=== PATIENT | male | born 1950 | race Caucasian/White ===

== ENCOUNTER 2017-10-19 17:20 | Emergency (ER) | payer OTHER ==
[2017-10-19] MEDS: ONDANSETRON 4 MG INJ IV (17:55)
[2017-10-19] MEDS: morphine 4 MG/ML VIAL IV (17:56)
[2017-10-19] MEDS: SOD CHLORIDE 0.9% 1,000 ML IV (17:56)
[2017-10-19 18:05] LABS: ADD MAN DIFF? NO
[2017-10-19 18:08] LABS: WHITE BLOOD COUNT 10.9 10^3/ul (4.8-10.8)
[2017-10-19 18:08] LABS: BASOPHILS % 0.4 % (0.0-2.0); EOSINOPHILS # 0.2 10^3/ul (0.0-0.5); HEMATOCRIT 41.6 % (42.0-52.0); HEMOGLOBIN 13.7 g/dl (14.0-18.0); LYMPHOCYTES % 18.8 % (15.0-51.0); MEAN CORPUSCULAR HEMOGLOBIN 28.9 pg (29.0-33.0); MEAN CORPUSCULAR HGB CONC 32.9 g/dl (32.0-37.0); MEAN CORPUSCULAR VOLUME 87.8 fl (82.0-101.0); MEAN PLATELET VOLUME 11.9 fl (7.4-10.4); MONOCYTE # 0.7 10^3/ul (0.3-0.9); MONOCYTES % 6.4 % (0.0-11.0); NEUTROPHIL # 7.8 10^3/ul (1.6-7.5); NEUTROPHILS % 71.8 % (39.0-77.0); PLATELET COUNT 232 10^3/UL (140-415); RED BLOOD COUNT 4.74 10^6/ul (4.70-6.10); RED CELL DISTRIBUTION WIDTH 13.6 % (11.5-14.5)
[2017-10-19 18:22] LABS: ALANINE AMINOTRANSFERASE 30 IU/L (13-69); ALBUMIN 3.6 g/dl (3.3-4.9); ALBUMIN/GLOBULIN RATIO 1.05; ALKALINE PHOSPHATASE 126 IU/L (42-121); AMYLASE 70 U/L (11-123); ANION GAP 15 (8-16); ASPARTATE AMINO TRANSFERASE 19 IU/L (15-46); BILIRUBIN,INDIRECT 0.2 mg/dl (0-1.1); BILIRUBIN,TOTAL 0.2 mg/dl (0.2-1.3); BLOOD UREA NITROGEN 15 mg/dl (7-20); CALCIUM 8.5 mg/dl (8.4-10.2); CARBON DIOXIDE 25 mmol/L (21-31); CHLORIDE 103 mmol/L (97-110); CREATININE 0.73 mg/dl (0.61-1.24); GLUCOSE 372 mg/dl (70-220); LIPASE 36 U/L (23-300); SODIUM 139 mmol/L (135-144)
[2017-10-19 18:27] LABS: INR 0.92; PROTIME 12.4 Sec (11.9-14.9)
[2017-10-19 18:28] LABS: PARTIAL THROMBOPLASTIN TIME 32.2 Sec (25.0-35.0)
[2017-10-19 18:35] LABS: TROPONIN-I < 0.012 ng/ml (0.00-0.12)
== END 2017-10-19 21:31 | disposition home or self-care (01) ==
LOC: E/R 17:20
DX: M79.3 Panniculitis, unspecified (principal); R40.2142 Coma scale, eyes open, spontaneous, at arrival to emergency department; R40.2252 Coma scale, best verbal response, oriented, at arrival to emergency department; R40.2362 Coma scale, best motor response, obeys commands, at arrival to emergency department; Z79.4 Long term (current) use of insulin; Z79.82 Long term (current) use of aspirin
CPT/HCPCS: 74176; 80053; 82150; 83690; 84484; 85025; 85610; 85730; 93005; 96374; 96375; 99285-25

== ENCOUNTER 2017-11-14 06:33 | Emergency (ER) | payer SELFPAY, OTHER ==
[2017-11-14] MEDS: IBUPROFEN 600 MG TAB PO (07:43)
[2017-11-14] MEDS ORDERED: DEXTROSE 50% 50 ML SYRINGE (07:59)
== END 2017-11-14 09:26 | disposition home or self-care (01) ==
LOC: E/R 06:33
DX: L84 Corns and callosities (principal); I10 Essential (primary) hypertension; E11.9 Type 2 diabetes mellitus without complications; Z79.4 Long term (current) use of insulin; Z79.82 Long term (current) use of aspirin
CPT/HCPCS: 99283